=== PATIENT | female | born 1990 | race Caucasian/White ===

== ENCOUNTER 2017-11-06 14:24 | Outpatient (CLI) | payer BC ==
[2017-11-06 14:51] LABS: BASOPHILS % 0.3 % (0.0-2.0); EOSINOPHILS # 0.2 10^3/ul (0.0-0.5); EOSINOPHILS % 1.8 % (0.0-7.0); HEMATOCRIT 40.6 % (37.0-47.0); LYMPHOCYTES # 1.7 10^3/ul (0.8-2.9); LYMPHOCYTES % 15.9 % (15.0-51.0); MEAN CORPUSCULAR HEMOGLOBIN 30.2 pg (29.0-33.0); MEAN CORPUSCULAR HGB CONC 34.5 g/dl (32.0-37.0); MEAN CORPUSCULAR VOLUME 87.7 fl (82.0-101.0); MEAN PLATELET VOLUME 12.1 fl (7.4-10.4); MONOCYTE # 0.9 10^3/ul (0.3-0.9); MONOCYTES % 8.4 % (0.0-11.0); NEUTROPHIL # 7.7 10^3/ul (1.6-7.5); NEUTROPHILS % 73.2 % (39.0-77.0); PLATELET COUNT 139 10^3/UL (140-415); RED BLOOD COUNT 4.63 10^6/ul (4.20-5.40); RED CELL DISTRIBUTION WIDTH 13.2 % (11.5-14.5); WHITE BLOOD COUNT 10.5 10^3/ul (4.8-10.8)
[2017-11-06 15:08] LABS: ALBUMIN 3.8 g/dl (3.3-4.9); BILIRUBIN,INDIRECT 0.3 mg/dl (0-1.1); BILIRUBIN,TOTAL 0.3 mg/dl (0.2-1.3); CALCIUM 9.8 mg/dl (8.4-10.2); CREATININE 0.85 mg/dl (0.44-1.00); TOTAL PROTEIN 7.6 g/dl (6.1-8.1); URIC ACID 5.1 mg/dl (3.1-7.9)
[2017-11-06 15:35] LABS: INR 0.93; PROTIME 12.5 Sec (11.9-14.9)
[2017-11-06 15:36] LABS: PARTIAL THROMBOPLASTIN TIME 34.3 Sec (25.0-35.0)
--- NOTE | 2017-11-06 15:54 | RADRPT ---
PROCEDURE: US OB biophysical profile. CLINICAL INDICATION: induced hypertension TECHNIQUE: Multiple sonographic images of the pelvis were obtained. The images were reviewed on a PACS workstation. COMPARISON: None FINDINGS: There is a single live intrauterine , in cephalic presentation. A normal heart rate i s identified measuring 146 beats per minute. The amniotic fluid index is elevated measuring 23.5 cm. The placenta is grade II, located anteriorly. Biophysical profile: movement 2/2 tone 2/2. breathing 2/2 CARMELA 2/2 Total 07/02 IMPRESSION: 1. Biophysical profile score of 8/8. 2. Single live intrauterine in cephalic presentation with normal heart rate of 146 b pm. 3. Elevated amniotic fluid index measuring 23.5 cm, suggestive of mild polyhydramnios. RPTAT: AAPP Physician Corey Date Time Electronically viewed and signed by Physician Corey on 11/06/2017 15:54 ARIANNA/
[2017-11-06 16:01] LABS: ADD UMIC YES; UR ASCORBIC ACID NEGATIVE (NEGATIVE); UR BACTERIA FEW /HPF (NONE SEEN); UR BILIRUBIN (Dip) NEGATIVE (NEGATIVE); UR BLOOD (Dip) NEGATIVE (NEGATIVE); UR CLARITY SLIGHTLY CLOUDY (CLEAR); UR COLOR YELLOW (YELLOW); UR GLUCOSE (Dip) NEGATIVE (NEGATIVE); UR KETONES (Dip) NEGATIVE (NEGATIVE); UR LEUKOCYTE ESTERASE (Dip) 3+ Leu/ul (NEGATIVE); UR NITRITE (Dip) NEGATIVE (NEGATIVE); UR RBC 4 /HPF (0-5); UR SPECIFIC GRAVITY (Dip) 1.018 (1.003-1.030); UR SQUAMOUS EPITHELIAL CELL FEW /HPF (FEW); UR TOTAL PROTEIN (Dip) NEGATIVE (NEGATIVE); UR UROBILINOGEN (Dip) NEGATIVE (NEGATIVE)
[2017-11-06] MEDS ORDERED: PNV11TAB PO (17:05)
--- NOTE | 2017-11-06 18:04 | PN ---
Triage Information Date/Time November 06, 2017 Reason for visit: Weeks of Gestation 38 weeks /Para 1 para 0 Diabetes: none Hypertention: induced (Patient was sent for rule out PIH) Additional information 27-year-old with IUP at 38 weeks with care with Dr. Mccord was noted to have elevated blood pressure and office visit in the range of 136 to 133/99 to 96. Patient denies any headache, blurred vision or epigastric pain. Denies any leaking of fluid vaginal bleeding or decreased movement. Objective Heart Rate: 130's Contractions: >10 Minutes Apart Exam General appearance: Alert and oriented 4 does not appear to be in any acute distress. Abdomen: Soft, gravid, fundal height consistent with gestational age Extremities: No calf tenderness, no cords palpable NST: Category 1 BPP: 8/8 Polyhydramnios noted. CARMELA: 23.5 Serial blood pressure in triage performed and blood pressures are on 110-111/70- 80. PIH labs are all normal Incidental finding of UTI and urine test noted. 3+ leukocyte esterase and 20 white BC. Patient is asymptomatic Hematology Test 11/06/17 14:35 Hematocrit 40.6% (37.0-47.0) Hemoglobin 14.0g/dl (12.0-16.0) Mean Corpuscular Hemoglobin 30.2pg (29.0-33.0) Mean Corpuscular Hemoglobin Concent 34.5g/dl (32.0-37.0) Mean Corpuscular Volume 87.7fl (82.0-101.0) Mean Platelet Volume 12.1fl (7.4-10.4) H Platelet Count 82378^3/UL (140-415) L Red Blood Count 4.6310^6/ul (4.20-5.40) Red Cell Distribution Width 13.2% (11.5-14.5) White Blood Count 10.510^3/ul (4.8-10.8) Chemistry Test 11/06/17 14:35 Sodium Level 139mmol/L (135-144) Potassium Level 4.0mmol/L (3.5-5.1) Chloride Level 105mmol/L (97-110) Carbon Dioxide Level 22mmol/L (21-31) Anion Gap 16 (8-16) Blood Urea Nitrogen 10mg/dl (7-20) Creatinine 0.85mg/dl (0.44-1.00) Glucose Level 87mg/dl (70-220) Uric Acid 5.1mg/dl (3.1-7.9) Calcium Level 9.8mg/dl (8.4-10.2) Total Bilirubin 0.3mg/dl (0.2-1.3) Direct Bilirubin 0.00mg/dl (0.00-0.20) Indirect Bilirubin 0.3mg/dl (0-1.1) Aspartate Amino Transf (AST/SGOT) 23IU/L (15-46) Alanine Aminotransferase (ALT/SGPT) 25IU/L (13-69) Alkaline Phosphatase 132IU/L (42-121) H Total Protein 7.6g/dl (6.1-8.1) Albumin 3.8g/dl (3.3-4.9) Globulin 3.80g/dl (1.3-3.2) H Albumin/Globulin Ratio 1.00 Hematology - 72 Hrs Test 11/06/17 14:35 White Blood Count 10.510^3/ul (4.8-10.8) Red Blood Count 4.6310^6/ul (4.20-5.40) Hemoglobin 14.0g/dl (12.0-16.0) Hematocrit 40.6% (37.0-47.0) Mean Corpuscular Volume 87.7fl (82.0-101.0) Mean Corpuscular Hemoglobin 30.2pg (29.0-33.0) Mean Corpuscular Hemoglobin Concent 34.5g/dl (32.0-37.0) Red Cell Distribution Width 13.2% (11.5-14.5) Platelet Count 02999^3/UL (140-415) L Mean Platelet Volume 12.1fl (7.4-10.4) H Neutrophils % 73.2% (39.0-77.0) Lymphocytes % 15.9% (15.0-51.0) Monocytes % 8.4% (0.0-11.0) Eosinophils % 1.8% (0.0-7.0) Basophils % 0.3% (0.0-2.0) Nucleated Red Blood Cells % 0.0/100WBC (0.0-0.0) Neutrophils # 7.710^3/ul (1.6-7.5) H Lymphocytes # 1.710^3/ul (0.8-2.9) Monocytes # 0.910^3/ul (0.3-0.9) Eosinophils # 0.210^3/ul (0.0-0.5) Basophils # 0.010^3/ul (0.0-0.1) Nucleated Red Blood Cells # 0.010^3/ul (0.0-0.0) Chemistry Test 11/06/17 14:35 Sodium Level 139mmol/L (135-144) Potassium Level 4.0mmol/L (3.5-5.1) Chloride Level 105mmol/L (97-110) Carbon Dioxide Level 22mmol/L (21-31) Anion Gap 16 (8-16) Blood Urea Nitrogen 10mg/dl (7-20) Creatinine 0.85mg/dl (0.44-1.00) Glucose Level 87mg/dl (70-220) Uric Acid 5.1mg/dl (3.1-7.9) Calcium Level 9.8mg/dl (8.4-10.2) Total Bilirubin 0.3mg/dl (0.2-1.3) Direct Bilirubin 0.00mg/dl (0.00-0.20) Indirect Bilirubin 0.3mg/dl (0-1.1) Aspartate Amino Transf (AST/SGOT) 23IU/L (15-46) Alanine Aminotransferase (ALT/SGPT) 25IU/L (13-69) Alkaline Phosphatase 132IU/L (42-121) H Total Protein 7.6g/dl (6.1-8.1) Albumin 3.8g/dl (3.3-4.9) Globulin 3.80g/dl (1.3-3.2) H Albumin/Globulin Ratio 1.00 Results/Medications Result Diagram: 11/06/17 1435 11/06/17 1435 Results 24 hrs Laboratory Tests Test 11/06/17 14:35 11/06/17 15:00 White Blood Count 10.5 Red Blood Count 4.63 Hemoglobin 14.0 Hematocrit 40.6 Mean Corpuscular Volume 87.7 Mean Corpuscular Hemoglobin 30.2 Mean Corpuscular Hemoglobin Concent 34.5 Red Cell Distribution Width 13.2 Platelet Count 139 L Mean Platelet Volume 12.1 H Neutrophils % 73.2 Lymphocytes % 15.9 Monocytes % 8.4 Eosinophils % 1.8 Basophils % 0.3 Nucleated Red Blood Cells % 0.0 Neutrophils # 7.7 H Lymphocytes # 1.7 Monocytes # 0.9 Eosinophils # 0.2 Basophils # 0.0 Nucleated Red Blood Cells # 0.0 Prothrombin Time 12.5 Prothrombin Time Ratio 1.0 INR International Normalized Ratio 0.93 Activated Partial Thromboplast Time 34.3 Fibrinogen 550.0 H Sodium Level 139 Potassium Level 4.0 Chloride Level 105 Carbon Dioxide Level 22 Anion Gap 16 Blood Urea Nitrogen 10 Creatinine 0.85 Glucose Level 87 Uric Acid 5.1 Calcium Level 9.8 Total Bilirubin 0.3 Direct Bilirubin 0.00 Indirect Bilirubin 0.3 Aspartate Amino Transf (AST/SGOT) 23 Alanine Aminotransferase (ALT/SGPT) 25 Alkaline Phosphatase 132 H Total Protein 7.6 Albumin 3.8 Globulin 3.80 H Albumin/Globulin Ratio 1.00 Urine Color YELLOW Urine Clarity SLIGHTLY CLOUDY A Urine pH 5.0 Urine Specific [place] 1.018 Urine Ketones NEGATIVE Urine Nitrite NEGATIVE Urine Bilirubin NEGATIVE Urine Urobilinogen NEGATIVE Urine Leukocyte Esterase 3+ H Urine Microscopic RBC 4 Urine Microscopic WBC 20 H Urine Squamous Epithelial Cells FEW Urine Bacteria FEW A Urine Hemoglobin NEGATIVE Urine Glucose NEGATIVE Urine Total Protein NEGATIVE Imaging Results PROCEDURE: US OB biophysical profile. CLINICAL INDICATION: induced hypertension TECHNIQUE: Multiple sonographic images of the pelvis were obtained. The images were reviewed on a PACS workstation. COMPARISON: None FINDINGS: There is a single live intrauterine , in cephalic presentation. A normal heart rate is identified measuring 146 beats per minute. The amniotic fluid index is elevated measuring 23.5 cm. The placenta is grade II, located anteriorly. Biophysical profile: movement 2/2 tone 2/2. breathing 2/2 CAMRELA 2/2 Total 07/02 IMPRESSION: 1. Biophysical profile score of 8/8. 2. Single live intrauterine in cephalic presentation with normal heart rate of 146 bpm. 3. Elevated amniotic fluid index measuring 23.5 cm, suggestive of mild polyhydramnios. Disposition: Discharge Assessment/Plan IUP at 38 weeks no evidence of PIH Evidence of labor or PPROM Polyhydramnios incidental noted during ultrasound examination Asymptomatic UTI DC home Strict labor precaution and kick count and preeclampsia precaution discussed the patient with follow-up within 24-48 hours with her primary OB Keflex 500 mg p.o. 4 times daily for 7 days Follow-up of polyhydramnios with primary OB Patient verbalized understanding TERESO BUTT MD Nov 06, 2017 18:04
--- NOTE | 2017-11-06 18:13 | TRIAGE ---
OB Triage Datetime Report Generated by CPN: 11/06/2017 18:13 Datetime: 11/06/2017 17:06 Maternal Assessment Level of Consciousness: Fully Conscious Headache: Denies Blurred Vision: No Nausea/Vomiting: Denies RUQ Epigastric Pain: Denies Facial Edema: None Labor Evaluation Frequency: 2-11 Monitor Mode: External Duration (sec)2399: 50-80 Quality: Mild Pattern: Normal: <= 5 Contractions in 10 Minutes Resting Tone [place]: Relaxed Contraction Comments: PT REPORTS THAT SHE DOES NOT FEEL HER CTX. Heart Rate FHR Baseline Rate: 135 Monitor Mode: External US FHR Baseline Changes: No Baseline Change Variability: Moderate 6-25 bpm Accelerations: 15X15 Decelerations: None Pain Assessment Pain Scale: 0 Pain Presence: None/Denies Pain Type: N/A Datetime: 11/06/2017 16:35 Vaginal Exam Dilatation (cms): 0.0 Effacement (%): 50 Station: -3 Exam By: CKUNIYOSHI Vaginal Bleeding: None Cervix, Consistency: Moderate Cervix, Position: Midposition Presentation 'A': Unable to Assess Datetime: 11/06/2017 16:27 Maternal Assessment Level of Consciousness: Fully Conscious Headache: Denies Blurred Vision: No Nausea/Vomiting: Denies RUQ Epigastric Pain: Denies Facial Edema: None Contraction Comments: PT REPORTS FEELING OCCASIONAL ABCOMINAL TIGHTENING, BUT DENIES PAIN OR ANY D ISCOMFORT WITH CONTRACTIONS. Pain Assessment Pain Scale: 0 Pain Presence: None/Denies Pain Type: N/A Datetime: 11/06/2017 16:00 Labor Evaluation Frequency: 2-5 Monitor Mode: External Duration (sec)2399: 40-80 Quality: Mild Pattern: Normal: <= 5 Contractions in 10 Minutes Resting Tone [place]: Relaxed Heart Rate FHR Baseline Rate: 155 Monitor Mode: External US FHR Baseline Changes: No Baseline Change Variability: Moderate 6-25 bpm Accelerations: 15X15 Decelerations: None Datetime: 11/06/2017 14:47 Labor Evaluation Frequency: 3-5 Monitor Mode: External Duration (sec)2399: 50-70 Quality: Mild Pattern: Normal: <= 5 Contractions in 10 Minutes Resting Tone [place]: Relaxed Heart Rate FHR Baseline Rate: 145 Monitor Mode: External US FHR Baseline Changes: No Baseline Change Variability: Moderate 6-25 bpm Accelerations: 15X15 Decelerations: None Category: Category I Pain Presence: None/Denies Datetime: 11/06/2017 14:30 Stage of : OB Triage Assessment Type: Triage EGA: 38.0 Maternal Assessment Level of Consciousness: Fully Conscious DTR's/Clonus: DTRs 2+; No Clonus Headache: Denies Blurred Vision: No Respiratory Effort: Unlabored; Regular Rhythm; Equal Expansion Breath Sounds, Left: Clear and Equal Breath Sounds, Right: Clear and Equal Nausea/Vomiting: Denies RUQ Epigastric Pain: Denies Lower Extremities Edema: None Degree: None Upper Extremities Edema: None Degree: None Facial Edema: None Temperature Route: Axillary Fall Risk Assessment History of Falling: (0) No Secondary Diagnosis: (0) No Ambulatory Aid: (0) Bedrest/Nurse Assist IV Therapy: (0) No Gait: (0) Normal/Bedrest/Immobile Mental Status: (0) Oriented to Own Ability Fall Score: 0 Fall Risk Score Definition: No Risk: No action required Datetime: 11/06/2017 14:29 Time of Arrival: 11/06/2017 14:29 Arrived By: Ambulatory Arrived From: Office Chief Complaint: R/O PIH, BPP Movement: Present Contractions: Denies/Absent Rupture of Membranes: Denies Vaginal Bleeding: None Vaginal Discharge: Denies Recent Sexual Intercouse: Denies Abdominal Trauma: Not Applicable Patient Complaints: None Time Provider Notified: 11/06/2017 16:30 Provider Notified: DR. HOOVER Initial Plan: EFM x2, PIH LABS
== END 2017-11-06 17:25 | disposition home or self-care (01) ==
LOC: L-D 14:24 → OBT 14:24
PROVIDERS: ATTEND Obstetrics & Gynecology
DX: O40.3XX0 Polyhydramnios, third trimester, not applicable or unspecified (principal); Z3A.38 38 weeks gestation of pregnancy
CPT/HCPCS: 76818; 80053; 81001; 84560; 85025; 85384; 85610; 85730; Z7500; G0463

== ENCOUNTER 2017-11-11 06:30 | Inpatient (IN) | payer MEDICAID ==
[~2017-11-11] VITALS: Ht 160 cm; Wt 94.8 kg
[~2017-11-11 06:30] MED LIST: PNV11TAB PO
[2017-11-11 06:49] VITALS: Ht 160 cm; Wt 94.8 kg
[2017-11-11] MEDS ORDERED: MISOPROSTOL 200 MCG TAB PR PRN (07:00)
[2017-11-11] MEDS ORDERED: CARBOPROST 250 MCG INJ IM PRN (07:00)
[2017-11-11] MEDS ORDERED: LIDOCAINE 1% (MPF) 30 ML INJ INJ PRN (07:00)
[2017-11-11] MEDS ORDERED: OXYTOCIN 30 UNITS/LR 500 ML IV PRN (07:00)
[2017-11-11] MEDS ORDERED: BUTORPHANOL 2 MG INJ IV PRN ×2 (07:00)
[2017-11-11] MEDS ORDERED: METHYLERGONOVINE 0.2 MG INJ IM PRN (07:00)
[2017-11-11] MEDS ORDERED: OXYTOCIN 30 UNITS/LR 500 ML IV SCH ×3 (07:00→23:55)
[2017-11-11] MEDS: LACTATED RINGER'S 1,000 ML IV SCH ×2 (07:22→13:26)
[2017-11-11 08:19] LABS: BASOPHILS % 0.3 % (0.0-2.0); EOSINOPHILS # 0.3 10^3/ul (0.0-0.5); HEMATOCRIT 40.4 % (37.0-47.0); HEMOGLOBIN 13.8 g/dl (12.0-16.0); LYMPHOCYTES # 1.6 10^3/ul (0.8-2.9); LYMPHOCYTES % 17.3 % (15.0-51.0); MEAN CORPUSCULAR HEMOGLOBIN 30.1 pg (29.0-33.0); MEAN CORPUSCULAR HGB CONC 34.2 g/dl (32.0-37.0); MEAN PLATELET VOLUME 12.6 fl (7.4-10.4); MONOCYTE # 0.5 10^3/ul (0.3-0.9); MONOCYTES % 5.2 % (0.0-11.0); NEUTROPHIL # 6.8 10^3/ul (1.6-7.5); NEUTROPHILS % 73.9 % (39.0-77.0); PLATELET COUNT 141 10^3/UL (140-415); RED BLOOD COUNT 4.59 10^6/ul (4.20-5.40); RED CELL DISTRIBUTION WIDTH 13.2 % (11.5-14.5); WHITE BLOOD COUNT 9.2 10^3/ul (4.8-10.8)
[2017-11-11 08:23] LABS: ADD UMIC YES; UR ASCORBIC ACID NEGATIVE (NEGATIVE); UR BACTERIA FEW /HPF (NONE SEEN); UR BILIRUBIN (Dip) NEGATIVE (NEGATIVE); UR BLOOD (Dip) NEGATIVE (NEGATIVE); UR CLARITY SLIGHTLY CLOUDY (CLEAR); UR COLOR YELLOW (YELLOW); UR GLUCOSE (Dip) NEGATIVE (NEGATIVE); UR KETONES (Dip) NEGATIVE (NEGATIVE); UR LEUKOCYTE ESTERASE (Dip) 3+ Leu/ul (NEGATIVE); UR NITRITE (Dip) NEGATIVE (NEGATIVE); UR RBC 2 /HPF (0-5); UR SPECIFIC GRAVITY (Dip) 1.023 (1.003-1.030); UR SQUAMOUS EPITHELIAL CELL FEW /HPF (FEW); UR TOTAL PROTEIN (Dip) NEGATIVE (NEGATIVE); UR UROBILINOGEN (Dip) 1+ mg/dL (NEGATIVE)
[2017-11-11 08:40] LABS: INR 0.93; PROTIME 12.5 Sec (11.9-14.9)
[2017-11-11 08:41] LABS: PARTIAL THROMBOPLASTIN TIME 34.9 Sec (25.0-35.0)
[2017-11-11 08:54] LABS: ALBUMIN 3.4 g/dl (3.3-4.9); ALBUMIN/GLOBULIN RATIO 1.06; BILIRUBIN,INDIRECT 0.1 mg/dl (0-1.1); BILIRUBIN,TOTAL 0.1 mg/dl (0.2-1.3); CREATININE 0.66 mg/dl (0.44-1.00); POTASSIUM 3.9 mmol/L (3.5-5.1); TOTAL PROTEIN 6.6 g/dl (6.1-8.1); URIC ACID 5.7 mg/dl (3.1-7.9)
[2017-11-11] MEDS ORDERED: DINOPROSTONE 10 MG VAG SUPP VAG ONE (09:00)
[2017-11-11] MEDS: LACTATED RINGER'S 1,000 ML IV PRN ×2 (18:32→20:38)
[2017-11-11] MEDS ORDERED: ONDANSETRON 4 MG INJ IV PRN (19:30)
[2017-11-11] MEDS ORDERED: DIPHENHYDRAMINE 50 MG INJ IV PRN (19:30)
[2017-11-11] MEDS ORDERED: NALOXONE (0.4 MG/ML) INJ IV PRN (19:30)
[2017-11-11] MEDS ORDERED: FENTAnyl 2MCG/ML-ROPIV 0.2% 100 ML BAG EPI SCH (19:30)
--- NOTE | 2017-11-11 21:28 | HP ---
Date/Time of Note Date/Time of Note DATE: 11/11/17 TIME: 21:27 OB - History Hx of Present Chief Complaint: high bp in office : 1 Para: 0 Care: Good Care Ultrasounds: Normal mid trimester US Obstetrical Complications: Pre-eclampsia Medical Complications: None Past Family/Social History * Past Medical, Surgical, Family and Obstetric Histories reviewed from chart. OB Admission Exam Physical Exam HEENT: WNL Heart: Rhythm Normal Lungs: Clear, Equal Abdomen: WNL Extremities: Normal Reflexes: Normal Cervical Dilatation: 10cm Effacement: 100% Station: +3 Membranes: Ruptured Amniotic Fluid: Clear Heart Rate: 130's Accelerations: Accelerations Present Decelerations: No Decelerations Varibility: Moderate Contractions on Admission: < 5 Minutes Apart Intensity: Moderate Last 72 hours Lab Results CBC & BMP 11/11/17 07:30 Liver Function Test 11/11/17 07:30 Alanine Aminotransferase (ALT/SGPT) 27 Albumin 3.4 Alkaline Phosphatase 131 H Aspartate Amino Transf (AST/SGOT) 19 Direct Bilirubin 0.00 Total Protein 6.6 OB Assessment/Plan Reason for admission: induction of labor Plan: Induction TRAY HOOVER MD Nov 11, 2017 21:28
--- NOTE | 2017-11-11 21:30 | LDN ---
Date/Time of Note Date/Time of Note DATE: 11/11/17 TIME: 21:29 Delivery Summary NSD, W/O COMPLICATIONS Placenta Delivered: Spontaneously Meconium: none Episiotomy: No Perineal laceration: 1 Anesthesia type: Epidural Estimated blood loss: 300 Sponge & Needle done & correct: Yes All needle counts correct: Yes Any foreign bodies felt in the: No Problems: TRAY HOOVER MD Nov 11, 2017 21:30
[2017-11-11 23:45] VITALS: BP 122/74; PULSE 82; RESP 18
[2017-11-12] MEDS ORDERED: MAGNESIUM HYDROXIDE 30ML CUP PO PRN
[2017-11-12] MEDS ORDERED: DIPHENHYDRAMINE 25 MG CAP PO PRN
[2017-11-12] MEDS ORDERED: CARBOPROST 250 MCG INJ IM PRN
[2017-11-12] MEDS ORDERED: ZOLPIDEM 5 MG TAB PO PRN
[2017-11-12] MEDS ORDERED: LANOLIN 7 GM TUBE TOP PRN
[2017-11-12] MEDS ORDERED: ACETAMINOPHEN 325 MG TAB PO PRN
[2017-11-12] MEDS ORDERED: OXYTOCIN 30 UNITS/LR 500 ML IV PRN
[2017-11-12] MEDS ORDERED: BENZOCAINE 20% 56 ML SPRAY TOP PRN
[2017-11-12] MEDS ORDERED: MISOPROSTOL 200 MCG TAB PR PRN
[2017-11-12] MEDS ORDERED: METHYLERGONOVINE 0.2 MG INJ IM PRN
[2017-11-12] MEDS ORDERED: WITCH HAZEL/GLYCERIN PAD PR PRN
[2017-11-12] MEDS: IBUPROFEN 800 MG TAB PO SCH ×4 (00:11→18:02)
[2017-11-12 03:45] VITALS: BP 90/65; PULSE 74; RESP 20
[2017-11-12] MEDS: LACTATED RINGER'S 1,000 ML IV* SCH ×2 (06:07→07:55)
[2017-11-12 08:00] VITALS: BP 92/56; PULSE 76; RESP 18
[2017-11-12] MEDS: SENNA/DOCUSATE NA (8.6MG/50MG) TAB PO PRN (09:05)
[2017-11-12 10:31] LABS: BASOPHILS % 0.3 % (0.0-2.0); EOSINOPHILS # 0.1 10^3/ul (0.0-0.5); EOSINOPHILS % 0.6 % (0.0-7.0); HEMATOCRIT 34.4 % (37.0-47.0); HEMOGLOBIN 11.6 g/dl (12.0-16.0); LYMPHOCYTES # 1.6 10^3/ul (0.8-2.9); LYMPHOCYTES % 11.1 % (15.0-51.0); MEAN CORPUSCULAR HEMOGLOBIN 30.2 pg (29.0-33.0); MEAN CORPUSCULAR HGB CONC 33.7 g/dl (32.0-37.0); MEAN CORPUSCULAR VOLUME 89.6 fl (82.0-101.0); MEAN PLATELET VOLUME 12.1 fl (7.4-10.4); MONOCYTE # 0.6 10^3/ul (0.3-0.9); MONOCYTES % 4.5 % (0.0-11.0); NEUTROPHILS % 83.1 % (39.0-77.0); PLATELET COUNT 149 10^3/UL (140-415); RED BLOOD COUNT 3.84 10^6/ul (4.20-5.40); RED CELL DISTRIBUTION WIDTH 13.6 % (11.5-14.5); WHITE BLOOD COUNT 14.4 10^3/ul (4.8-10.8)
[2017-11-12 12:10] VITALS: BP 118/60; PULSE 87; RESP 19
--- NOTE | 2017-11-12 12:27 | QN ---
Documentation Comment DOING WELL VSS ABD SOFT D/C HOME NEXT AM TRAY HOOVER MD Nov 12, 2017 12:27
--- NOTE | 2017-11-12 12:29 | DS ---
Date/Time of Note Date/Time of Note DATE: 11/12/17 TIME: 12:28 Discharge Summary Admission/Discharge Info Admit Date/Time Nov 11, 2017 at 06:46 Discharge Date/Time Discharge Diagnosis TERM PREG Patient Condition: Stable Procedures VAGINAL DELIVERY Hospital Course UNREMARKABLE Home Meds Reported Medications [id number] ( 19) 1 Each Tablet, 1 TAB PO DAILY, TAB 11/06/17 Primary Care Provider Care Physician No Primary Pending Labs Laboratory Tests Test 11/12/17 09:51 White Blood Count 14.410^3/ul (4.8-10.8) Red Blood Count 3.8410^6/ul (4.20-5.40) Hemoglobin 11.6g/dl (12.0-16.0) Hematocrit 34.4% (37.0-47.0) Mean Corpuscular Volume 89.6fl (82.0-101.0) Mean Corpuscular Hemoglobin 30.2pg (29.0-33.0) Mean Corpuscular Hemoglobin Concent 33.7g/dl (32.0-37.0) Red Cell Distribution Width 13.6% (11.5-14.5) Platelet Count 83987^3/UL (140-415) Mean Platelet Volume 12.1fl (7.4-10.4) Neutrophils % 83.1% (39.0-77.0) Lymphocytes % 11.1% (15.0-51.0) Monocytes % 4.5% (0.0-11.0) Eosinophils % 0.6% (0.0-7.0) Basophils % 0.3% (0.0-2.0) Nucleated Red Blood Cells % 0.0/100WBC (0.0-0.0) Neutrophils # 12.010^3/ul (1.6-7.5) Lymphocytes # 1.610^3/ul (0.8-2.9) Monocytes # 0.610^3/ul (0.3-0.9) Eosinophils # 0.110^3/ul (0.0-0.5) Basophils # 0.010^3/ul (0.0-0.1) Nucleated Red Blood Cells # 0.010^3/ul (0.0-0.0) TRAY HOOVER MD Nov 12, 2017 12:29
[2017-11-12 15:50] VITALS: BP 93/59; PULSE 95; RESP 17
[2017-11-12 19:55] VITALS: BP 107/68; PULSE 110; RESP 18
[2017-11-12] MEDS: HYDROCODONE/APAP (5/325) TAB PO PRN (19:55)
[2017-11-13] MEDS: IBUPROFEN 800 MG TAB PO SCH ×3 (00:14→15:20)
[2017-11-13 03:50] VITALS: BP 97/60; PULSE 86; RESP 20
[2017-11-13 09:00] VITALS: BP 109/65; PULSE 99; RESP 18
[2017-11-13] MEDS ORDERED: MEASLES,MUMPS,RUBELLA VACCINE INJ SC* ONE (09:00)
[2017-11-13] MEDS ORDERED: VARICELLA VACCINE LIVE/PF 1,350 UNIT/0.5 ML ML SC* ONE (09:00)
[2017-11-13] MEDS ORDERED: DIPHTH/TET/ACEL PERTUSS (ADULT) 0.5 ML VIAL IM* ONE (09:00)
[2017-11-13] MEDS: SENNA/DOCUSATE NA (8.6MG/50MG) TAB PO PRN (10:28)
[2017-11-13] MEDS: HYDROCODONE/APAP (5/325) TAB PO PRN (10:28)
--- NOTE | 2017-11-13 12:02 | PN ---
Date/Time of Note Date/Time of Note DATE: 11/13/17 TIME: 11:59 OB Subjective Subjective Subjective Denies any headache, blurred vision or epigastric pain or right upper quadrant pain. Vaginal bleeding decrease. Breast-feeding. Ambulating. Urinated. OB Objective Objective Objective General appearance: Alert and oriented 4. Patient does not appear to be in any acute distress. Abdomen: Soft, fundus nontender and palpable 2 cm below the umbilicus. No fundal tenderness, Extremities: No calf tenderness, no cords palpable, negative Homans sign Hematology - 72 Hrs Test 11/11/17 07:30 11/12/17 09:51 White Blood Count 9.210^3/ul (4.8-10.8) 14.410^3/ul (4.8-10.8) #H Red Blood Count 4.5910^6/ul (4.20-5.40) 3.8410^6/ul (4.20-5.40) L Hemoglobin 13.8g/dl (12.0-16.0) 11.6g/dl (12.0-16.0) L Hematocrit 40.4% (37.0-47.0) 34.4% (37.0-47.0) L Mean Corpuscular Volume 88.0fl (82.0-101.0) 89.6fl (82.0-101.0) Mean Corpuscular Hemoglobin 30.1pg (29.0-33.0) 30.2pg (29.0-33.0) Mean Corpuscular Hemoglobin Concent 34.2g/dl (32.0-37.0) 33.7g/dl (32.0-37.0) Red Cell Distribution Width 13.2% (11.5-14.5) 13.6% (11.5-14.5) Platelet Count 77001^3/UL (140-415) 89022^3/UL (140-415) Mean Platelet Volume 12.6fl (7.4-10.4) H 12.1fl (7.4-10.4) H Neutrophils % 73.9% (39.0-77.0) 83.1% (39.0-77.0) H Lymphocytes % 17.3% (15.0-51.0) 11.1% (15.0-51.0) L Monocytes % 5.2% (0.0-11.0) 4.5% (0.0-11.0) Eosinophils % 3.0% (0.0-7.0) 0.6% (0.0-7.0) Basophils % 0.3% (0.0-2.0) 0.3% (0.0-2.0) Nucleated Red Blood Cells % 0.0/100WBC (0.0-0.0) 0.0/100WBC (0.0-0.0) Neutrophils # 6.810^3/ul (1.6-7.5) 12.010^3/ul (1.6-7.5) H Lymphocytes # 1.610^3/ul (0.8-2.9) 1.610^3/ul (0.8-2.9) Monocytes # 0.510^3/ul (0.3-0.9) 0.610^3/ul (0.3-0.9) Eosinophils # 0.310^3/ul (0.0-0.5) 0.110^3/ul (0.0-0.5) Basophils # 0.010^3/ul (0.0-0.1) 0.010^3/ul (0.0-0.1) Nucleated Red Blood Cells # 0.010^3/ul (0.0-0.0) 0.010^3/ul (0.0-0.0) Chemistry Test 11/11/17 07:30 Sodium Level 139mmol/L (135-144) Potassium Level 3.9mmol/L (3.5-5.1) Chloride Level 107mmol/L (97-110) Carbon Dioxide Level 21mmol/L (21-31) Anion Gap 15 (8-16) Blood Urea Nitrogen 11mg/dl (7-20) Creatinine 0.66mg/dl (0.44-1.00) Glucose Level 91mg/dl (70-220) Uric Acid 5.7mg/dl (3.1-7.9) Calcium Level 9.0mg/dl (8.4-10.2) Total Bilirubin 0.1mg/dl (0.2-1.3) L Direct Bilirubin 0.00mg/dl (0.00-0.20) Indirect Bilirubin 0.1mg/dl (0-1.1) Aspartate Amino Transf (AST/SGOT) 19IU/L (15-46) Alanine Aminotransferase (ALT/SGPT) 27IU/L (13-69) Alkaline Phosphatase 131IU/L (42-121) H Total Protein 6.6g/dl (6.1-8.1) Albumin 3.4g/dl (3.3-4.9) Globulin 3.20g/dl (1.3-3.2) Albumin/Globulin Ratio 1.06 OB Assessment/Plan Other Assessment: Status post Gestational hypertension, preeclampsia, status post induction Blood pressures are well controlled. Asymptomatic day #2 DC home Follow-up with office primary OB in 2 weeks and 6 weeks Follow-up in 2 weeks for monitoring of blood pressure. Strict preeclampsia precaution discussed with the patient and signs and symptoms reviewed with the patient. Patient verbalized understanding. All questions were answered. TERESO BUTT MD Nov 13, 2017 12:02
== END 2017-11-13 16:30 | disposition home or self-care (01) | DRG 775 ==
LOC: L-D 06:46 → PP1 23:45
PROVIDERS: ADMIT Obstetrics & Gynecology; ATTEND Obstetrics & Gynecology
PROC: 0HQ9XZZ Repair Perineum Skin, External Approach (ICD-10-PCS; 2017-11-11)
PROC: 4A1HXCZ Monitoring of Products of Conception, Cardiac Rate, External Approach (ICD-10-PCS; 2017-11-11)
PROC: 3E0P7GC Introduction of Other Therapeutic Substance into Female Reproductive, Via Natural or Artificial Opening (ICD-10-PCS; 2017-11-11)
PROC: 10E0XZZ Delivery of Products of Conception, External Approach (ICD-10-PCS; principal; 2017-11-11 06:30)
DX: O14.94 Unspecified pre-eclampsia, complicating childbirth (principal); O70.0 First degree perineal laceration during delivery; Z37.0 Single live birth; Z3A.38 38 weeks gestation of pregnancy
CPT/HCPCS: 62319; 80053; 81001; 84560; 85025; 85384; 85610; 85730; 86592; 86900; 86901; 87340; 90715; 90716; J0595; J2590; J3010; J7120